=== PATIENT | female | born 1980 | race Two or more races ===

== ENCOUNTER 2022-03-04 19:34 | Emergency (ER) | payer MEDICAID, SELFPAY ==
[2022-03-04 19:57] VITALS: BP 129/83; PULSE 83; RESP 18; TEMP 36.9; O2SAT 98; BMI 28.1
[2022-03-04 20:07] LABS: MANUAL DIFF FLAG NO
[2022-03-04 20:13] LABS: Basophils Absolute Auto 0.1 X10*3/uL (0.0-0.2); Basophils Percent Auto 0.7 % (0-2); Eosinophils Absolute Auto 0.3 X10*3/uL (0.0-0.4); Eosinophils Percent Auto 3.6 % (0-4); Hematocrit 35.9 % (37.0-47.0); Hemoglobin 11.3 g/dl (12.0-16.0); Imm Gran Abs Auto 0.02 X10*3/uL (0.00-0.03); Imm Gran Pct Auto 0.2 % (0.0-0.4); Lymphocytes Absolute Auto 3.5 X10*3/uL (1.2-4.9); Lymphocytes Percent Auto 42.7 % (20-40); Mean Corpuscular HGB Conc 31.5 g/dl (31.0-35.0); Mean Corpuscular Volume 79.4 fL (80.0-98.0); Monocytes Absolute Auto 0.6 X10*3/uL (0.1-1.2); Neutrophils Absolute Auto 3.8 x10*3/uL (2.0-8.3); Neutrophils Percent Auto 45.8 % (45-73); Platelet Count 346 X10*3/uL (160-400); Red Blood Count 4.52 X10*6/uL (4.20-5.50); Red Cell Distribution Width 15.3 % (11.0-16.0); White Blood Count 8.3 X10*3/uL (4.8-10.8)
[2022-03-04 20:23] LABS: Anion Gap 10 (12-20); Blood Urea Nitrogen 16 mg/dL (9-16); Calcium 9.6 mg/dL (8.4-10.2); Carbon Dioxide 27 mmol/L (22-29); Chloride 107 mmol/L (96-108); Creatinine Clr Calc Pharmacy 90.8; Estimated Glomerular Filt Rate > 60; Glucose Random 93 mg/dL (60-115); Potassium 3.9 mmol/L (3.3-5.1); Sodium 140 mmol/L (135-145)
--- NOTE | 2022-03-04 23:00 | ED_ITS ---
HPI - Headache General Chief Complaint: Headache Stated Complaint: high bp Time Seen by Provider: 03/04/22 22:59 Source: patient Mode of arrival: ambulatory Limitations: no limitations History of Present Illness HPI Narrative: Patient with history of headaches for a long time been having headache for last 5 days mostly localized on the right side with sometimes blurred vision photosensitivity and nausea no vomiting no head injury no fever or chills no nasal discharge no relation of headache with posture change no neck pain Related Data Previous Rx's Medication Instructions Recorded mzndblpmny-rxmrvzknftkqv-rlxvbjfo 1 cap PO Q6H PRN #20 cap 03/05/22 50 mg-300 mg-40 mg capsule (Fioricet) ondansetron 4 mg disintegrating 4 mg PO Q6-8H PRN #15 tab 03/05/22 tablet sumatriptan succinate 50 mg tablet 50 mg PO Q2H PRN #10 tab 03/05/22 (Imitrex) Allergies Allergy/AdvReac Type Severity Reaction Status Date / Time No Known Allergies Allergy Verified 03/04/22 19:56 Review of Systems Review of Systems: Yes all other systems are reviewed and are negative [facility] Social History Social History Advance Directives: No Advance Directives Information Provided: Yes Physical Exam Vital Signs: Vital Signs: Last Vital Signs Temp 98.1 F 03/04/22 23:22 Pulse 71 03/04/22 23:22 Resp 16 03/04/22 23:22 BP 139/89 03/04/22 23:22 Pulse Ox 100 03/04/22 23:22 BMI result Body Mass Index 28.1 Appearance: Alert. Oriented X3. No acute distress. Eyes: PERRLA, No Nystagmus fundus benign no papilledema ENT: Pharynx normal. Oral Mucosa moist no temporal artery tenderness Neck: Normal inspection. Neck supple. CVS: Normal heart rate and rhythm. Pulses normal. Respiratory: No respiratory distress. Equal air entry bilateral, no wheezing/rales/rhonchi Abdomen: Soft and nontender. Bowel sounds are present, no mass palpable, Skin: Skin warm and dry. Normal skin color. Normal skin turgor. Extremities: No lower extremity edema. No calf tenderness Neuro: Oriented X 3. No motor deficit. No sensory deficit.No cerebellar signs , cranial nerves II-XII intact MDM - Headache MDM Narrative Medical decision making narrative: Patient clinically with migraine headache responded to Imitrex will discharge patient home on Imitrex and Fioricet Lab Data Attestation: I reviewed the patient's lab results. Result diagrams: 03/04/22 20:03 03/04/22 20:03 Labs: Lab Results 03/04/22 03/04/22 Range/Units 20:03 20:03 WBC 8.3 (4.8-10.8) X10*3/uL RBC 4.52 (4.20-5.50) X10*6/uL Hgb 11.3 L (12.0-16.0) g/dl Hct 35.9 L (37.0-47.0) % MCV 79.4 L (80.0-98.0) fL MCH 25.0 L (27.0-33.0) pg MCHC 31.5 (31.0-35.0) g/dl RDW 15.3 (11.0-16.0) % Plt Count 346 (160-400) X10*3/uL MPV 10.0 (9.4-12.3) fL Immature Gran % (Auto) 0.2 (0.0-0.4) % Neut % (Auto) 45.8 (45-73) % Lymph % (Auto) 42.7 H (20-40) % Sunflower % (Auto) 7.0 (2-11) % Eos % (Auto) 3.6 (0-4) % Baso % (Auto) 0.7 (0-2) % Lymph # (Auto) 3.5 (1.2-4.9) X10*3/uL Sunflower # (Auto) 0.6 (0.1-1.2) X10*3/uL Eos # (Auto) 0.3 (0.0-0.4) X10*3/uL Baso # (Auto) 0.1 (0.0-0.2) X10*3/uL Abs Immat Gran (auto) 0.02 (0.00-0.03) X10*3/uL Absolute Neuts (auto) 3.8 (2.0-8.3) x10*3/uL Absolute Nucleated RBC 0.000 (0.0-0.012) X10*3/uL Nucleated RBC % (auto) 0.0 (0.0-0.2) /100WBC Sodium 140 (135-145) mmol/L Potassium 3.9 (3.3-5.1) mmol/L Chloride 107 (96-108) mmol/L Carbon Dioxide 27 (22-29) mmol/L Anion Gap 10 L (12-20) BUN 16 (9-16) mg/dL Creatinine 0.76 (0.5-1.4) mg/dL Estim Creat Clear Calc 90.8 Estimated GFR > 60 Random Glucose 93 (60-115) mg/dL Calcium 9.6 (8.4-10.2) mg/dL Discharge Plan Discharge Clinical Impression: Migraine Patient Disposition: Home, Self-Care Instructions: Migraine Headache (ED) Additional Instructions: rest at home Imitrex as advised Fioricet 1 tablet every 6 hours as needed Zofran for nausea Follow with PCP Prescriptions: New sumatriptan succinate [Imitrex] 50 mg tablet 50 mg PO Q2H PRN (Reason: migraine headache) Qty: 10 0RF Rx Instructions: do not exceed 2 doses per 24 hrs ondansetron 4 mg tablet,disintegrating 4 mg PO Q6-8H PRN (Reason: nausea and vomiting) Qty: 15 0RF vtsitsfvys-ivbphlzzcdqbd-wwsk [Fioricet] 50-300-40 mg capsule 1 cap PO Q6H PRN (Reason: headache) Qty: 20 0RF Interventions: ED Discharge Assessment Last Done: 03/05/22 00:34 Discharge Date/Time: 03/05/22 00:34
[2022-03-04 23:22] VITALS: BP 139/89; PULSE 71; RESP 16; TEMP 36.7; O2SAT 100
[2022-03-05] MEDS: SUMAtriptan succinate 6 MG/0.5 ML VIAL SUBCUT (00:01)
--- NOTE | 2022-03-05 00:01 | PC.NURSE ---
Assumed care of pt Pt c/o RUSSO x few days with some sensitivity to light Pt taking tylenol and advil with no relief AxO x 4, clear and complete NAD Will continue to monitor
== END 2022-03-05 00:34 | disposition home or self-care (01) ==
PROVIDERS: Emergency Provider Internal Medicine
DX: G43.909 Migraine, unspecified, not intractable, without status migrainosus (principal); H53.8 Other visual disturbances; Z79.899 Other long term (current) drug therapy
CPT/HCPCS: 36415; 80048; 85025; 96372; 99283; 99284; J3030

== ENCOUNTER 2024-02-21 08:25 | Emergency (ER) | payer MEDICAID, SELFPAY ==
--- NOTE | ~2024-02-21 | XR_ITS ---
EXAMINATION: XR CHEST CLINICAL INFORMATION: Chest pain COMPARISON: Chest radiograph from 10/16/2008 TECHNIQUE: Frontal view of the chest was obtained. FINDINGS: No focal consolidation. No pneumothorax. Trachea is midline. Cardiac mediastinal silhouette is not enlarged. No large pleural effusion. Osseous structures are intact. Soft tissues are unremarkable. XR/XR chest 1V IMPRESSION: No acute cardiopulmonary process.
--- NOTE | ~2024-02-21 | CT_ITS ---
EXAMINATION: CTA NECK WITH CONTRAST (STROKE) CTA BRAIN WITH CONTRAST (STROKE) CLINICAL INFORMATION: Suspect acute stroke. Assess for major vessel occlusion. Please call report. COMPARISON: None available. TECHNIQUE: CTA of the head and neck was performed in the axial plane from the mediastinum to the skull vertex using 70 mL Omnipaque 350 intravenous contrast. Additional reformatted multiplanar images including maximum intensity projection MIP images are generated on the CT workstation. This CT examination was performed using dose optimization techniques as appropriate, variously including the following: *Automated exposure control *Adjustment of mA and/or kV according to patient size (this includes techniques or standardized protocols for targeted exams where dose is matched to indication/reason for exam; i.e. extremities or head) *Use of iterative reconstruction technique DLP: 1405 mGy-cm FINDINGS: The degree of stenosis determined by criteria similar to NASCET. BRAIN: See accompanying CT of the brain report. CHEST CTA: The visualized thoracic aortic arch is normal in caliber. There is a three-vessel arch configuration. The brachiocephalic vessels are patent and normal in caliber. There is tortuosity of the proximal left common carotid artery and subclavian artery. There are mroy-ou-qegfrait kinks in the proximal left common carotid artery with associated moderate narrowing of the proximal left common carotid artery. Proximal right common carotid artery is smoothly contoured and normal in caliber. Right subclavian artery is patent and normal in caliber. Distal left subclavian artery is not clearly visualized due to artifacts. NECK CTA: The vertebral arteries are patent with the left being slightly dominant without significant focal stenosis or segmental occlusion. The qfm-sc-dtqylr common carotid arteries are patent and the smoothly contoured. The carotid bifurcations are patent and smoothly contoured. The cervical internal and external carotid arteries are patent, normal caliber and smoothly contoured. BRAIN CTA: The intracranial ICAs are patent and are normal in caliber with smooth contours. The A1 and A2 segments are patent and normal in caliber with normal arborization of the A2 segments. Anterior communicating artery appears normal. The M1 segments, MCA bifurcations and M2 branches are patent and normal in caliber. The intradural vertebral arteries are patent and normal in caliber. The basilar artery is patent and normal in caliber. Superior cerebellar and posterior cerebral arteries are patent and normal in caliber with a origin of the right [employer] and a hypoplastic right P1 segment, normal variant. Left posterior communicating artery also visualized. CT/CT angio head neck stroke IMPRESSION: 1. There are a few kinks in the tortuous proximal left common carotid artery with associated focal short segment moderate narrowing of the proximal left common carotid artery. 2. Otherwise, normal CT angiogram of the neck. 3. Normal CT angiogram of the head. The [facility] staff will call to confirm receipt of this report with acknowledgement of the findings and any recommendations.
--- NOTE | ~2024-02-21 | CT_ITS ---
EXAMINATION: CT HEAD WITHOUT CONTRAST (STROKE PROTOCOL) CLINICAL INFORMATION: Stroke protocol. Speech problems. COMPARISON: None available. TECHNIQUE: Contiguous axial imaging was performed from the skull base to vertex without intravenous administration of contrast. This CT examination was performed using dose optimization techniques as appropriate, variously including the following: *Automated exposure control *Adjustment of mA and/or kV according to patient size (this includes techniques or standardized protocols for targeted exams where dose is matched to indication/reason for exam; i.e. extremities or head) *Use of iterative reconstruction technique DLP: 652 mGy-cm FINDINGS: Brain Volume: Within normal limits within the limitations of qualitative assessment. Structural: No malformations. Brain and Meninges: The brain parenchyma is normal in morphology and attenuation. Javier-white matter interface is preserved. There is no acute territorial infarct, hemorrhage, extra-axial fluid collection, space-occupying process or mass effect. Ventricles and Subarachnoid Spaces: The ventricular system and subarachnoid spaces are within normal range; there is no hydrocephalus. Orbital Structures: Grossly unremarkable within the limitations of the study. Osseous Structures, Sinuses/Mastoids, Extracranial Soft Tissues: Unremarkable CT/CT head for stroke IMPRESSION: No acute intracranial pathology. The [facility] staff will call to confirm receipt of this report with acknowledgement of the findings and any recommendations.
--- NOTE | 2024-02-21 08:32 | ECG_ITS ---
Test Reason : stroke/chest pain Blood Pressure : / mmHG Vent. Rate : 086 BPM Atrial Rate : 086 BPM P-R Int : 140 ms QRS Dur : 076 ms QT Int : 344 ms P-R-T Axes : 044 015 011 degrees QTc Int : 411 ms Normal sinus rhythm Normal ECG When compared with ECG of 16-OCT-2008 13:52, No significant change was found Referred By: Jaspreet Redmond Electronically Signed By:NELDA STREETER
--- NOTE | 2024-02-21 08:39 | ED_ITS ---
HPI - Neuro Symptoms/Deficit General Chief Complaint: Stroke Stated Complaint: STROKE ALERT,RUSSO,CP DOWN LEFT ARM PER EMS Time Seen by Provider: 02/21/24 08:32 Source: patient and EMS Mode of arrival: EMS Limitations: no limitations History of Present Illness HPI Narrative: This is a 45 years old female presented to the emergency department complaining of headache chest pain radiated to the left arm she states that she was having problems speaking. She does have history of migraines she has been seen in this emergency room in the past for migraines. Onset (ago): hour(s) (1) Location: speech History of same: Yes Severity: moderate Exacerbating factors: none Context: gradual onset Associated symptoms: chest pain Related Data Previous Rx's ?Medication ?Instructions ?Recorded atqkooqewd-azahmosghdnka-hemarfnh 1 cap PO Q6H PRN headache #20 caps 03/05/22 50 mg-300 mg-40 mg capsule (Fioricet) ondansetron 4 mg disintegrating 4 mg PO Q6-8H PRN nausea and 03/05/22 tablet vomiting #15 tabs sumatriptan succinate 50 mg tablet 50 mg PO Q2H PRN migraine headache 03/05/22 (Imitrex) #10 tabs Allergies Allergy/AdvReac Type Severity Reaction Status Date / Time No Known Allergies Allergy Verified 02/21/24 09:08 Review of Systems 2 Constitutional: Constitutional: Reports no additional constitutional complaints ENT: Reports system reviewed and no additional complaints, except as documented Cardiovascular: Cardiovascular: Reports no additional cardiovascular complaints [facility] Past Medical History Attestation statement: The following information was validated with the patient. [facility] Narrative: Migraine headache Source: unable to obtain Social History Social History Smoked in Last 30 Days: No Use of substances other than those prescribed or required for medical reasons: No Advance Directives: No Advance Directives Information Provided: No Do you have a plan to hurt others: No Plan Physical Exam 2 Vital Signs: Vital Signs: Last Vital Signs Temp 0 F L 02/21/24 12:49 Pulse 75 02/21/24 12:49 Resp 18 02/21/24 12:49 BP 144/95 H 02/21/24 12:49 Pulse Ox 98 02/21/24 12:49 O2 Del Method Room Air 02/21/24 12:49 BMI result Body Mass Index 28.2 Const: General: cooperative, comfortable and no acute distress Nutritional Appearance: average body habitus Orientation/consciousness: patient oriented x3 Limitations: no limitations HEENT: Head: Yes normal to inspection and Yes No palpable skull fracture present Face and sinus: Yes normal facial exam Mouth: Normal oral and palatal mucosa present Teeth and gingiva: dentition normal Eyes: General: appearance normal, both eyes and all related structures V isual Amin: normal visual amin by confrontation Neck: Neck: Yes normal visual inspection and Yes full ROM Chest: Chest palpation & inspection: normal inspection of the chest Resp: Effort & Inspection: normal respiratory effort and able to speak in complete sentences Auscultation: clear to auscultation bilaterally P ercussion: percussion normal Cardio: Jugular venous distension: no JVD Palpation: normal PMI Rate: r egular rate Rhythm: regular rhythm GI: Inspection: Yes normal to inspection Palpation (GI): Soft to palpation, not firm, nontender and no guarding Auscultation: normal bowel sounds Skin: General skin exam: no rashes or lesions noted, elasticity normal and turgor normal Neuro: General: patient oriented x3 Cranial nerves: Yes CN's II-XII intact bilaterally Cognition (Neuro): normal cognition Motor exam (neuro): 5/5 motor strength present throughout Course Reevaluation(s) Reevaluation #1: completely asymptomatic,most likely complicated migraine Time: 12:32 Medications Administered Discontinued Medications Generic Name Dose Route Start Last Admin Trade Name Freq PRN Reason Stop Dose Admin Acetaminophen/Butalbital/Caffeine 2 tab 02/21/24 09:07 02/21/24 09:20 Butalb/Acetamin/Caff 50/325/40 Tablet PO 02/21/24 09:08 2 tab ONCE ONE Administration Iohexol 100 ml 02/21/24 09:07 02/21/24 09:08 Iohexol 350 Mg/Ml 100 Ml Infus..Btl IV 02/21/24 09:08 70 ml ONCE ONE Administration Medical Decision Making Medical Decision Making [facility] Narrative: Patient presented with stroke-like symptoms, she is neurologically intact at this time I think most likely this is complicated migraine. Will do imaging anyway Differential Diagnosis Differential Diagnoses: The differential diagnosis associated with the presentation includes CVA/TIA/complicated migraine Lab Data [facility] Lab Attestation statement: I reviewed the patient's lab results. 02/21/24 10:03 02/21/24 10:03 Labs: Lab Results 02/21/24 02/21/24 02/21/24 Range/Units 08:36 08:37 10:03 WBC 8.4 (4.8-10.8) X10*3/uL RBC 4.73 (4.20-5.50) X10*6/uL Hgb 11.4 L (12.0-16.0) g/dl Hct 36.3 L (37.0-47.0) % MCV 76.7 L (80.0-98.0) fL MCH 24.1 L (27.0-33.0) pg MCHC 31.4 (31.0-35.0) g/dl RDW 16.4 H (11.0-16.0) % Plt Count 364 (160-400) X10*3/uL MPV 9.4 (9.4-12.3) fL Immature Gran % (Auto) 0.1 (0.0-0.4) % Neut % (Auto) 60.8 (45-73) % Lymph % (Auto) 29.0 (20-40) % Hartley % (Auto) 5.4 (2-11) % Eos % (Auto) 4.1 H (0-4) % Baso % (Auto) 0.6 (0-2) % Lymph # (Auto) 2.4 (1.2-4.9) X10*3/uL Hartley # (Auto) 0.5 (0.1-1.2) X10*3/uL Eos # (Auto) 0.3 (0.0-0.4) X10*3/uL Baso # (Auto) 0.1 (0.0-0.2) X10*3/uL Abs Immat Gran (auto) 0.01 (0.00-0.03) X10*3/uL Absolute Neuts (auto) 5.1 (2.0-8.3) x10*3/uL Absolute Nucleated RBC 0.000 (0.0-0.012) X10*3/uL Nucleated RBC % (auto) 0.0 (0.0-0.2) /100WBC Whole Blood PT 11.9 (11.1-13.5) sec Whole Blood INR 1.0 (0.9-1.1) Sodium 139 (135-145) mmol/L Potassium 3.5 (3.3-5.1) mmol/L Chloride 106 (96-108) mmol/L Carbon Dioxide 26 (22-29) mmol/L Anion Gap 11 L (12-20) BUN 11 (9-16) mg/dL Creatinine 0.64 (0.5-1.4) mg/dL Estim Creat Clear Calc 105.7 Estimated GFR > 60 POC Glucose 95 (60-115) mg/dL Random Glucose 93 (60-115) mg/dL Calcium 9.0 D (8.4-10.2) mg/dL Total Bilirubin 0.2 (0.0-1.0) mg/dL AST 11 (5-31) U/L ALT 12 (0-31) U/L Alkaline Phosphatase 67 (39-117) U/L Troponin I High Sens < 2.7 (<3.5-17.0) ng/L Total Protein 6.7 (6.5-8.0) g/dL Albumin 3.7 (3.5-5.0) g/dL Beta HCG, Quant < 2 mIU/mL Independent Interpretation I performed an independent interpretation of an: CT Scan Interpretation: NO BLEED Radiology Impression Discussion of test interpretation with radiology: I have reviewed the radiologist's reading. Independent Historian Clinical information obtained from an independent historian. History obtained from or confirmed by: EMS EMS Discharge Plan Discharge Clinical Impression: Complicated migraine Patient Disposition: Home, Self-Care Instructions: Migraine Headache (ED) Prescriptions: No Action sumatriptan succinate [Imitrex] 50 mg tablet 50 mg PO Q2H PRN (Reason: migraine headache) Qty: 10 0RF Rx Instructions: do not exceed 2 doses per 24 hrs ondansetron 4 mg tablet,disintegrating 4 mg PO Q6-8H PRN (Reason: nausea and vomiting) Qty: 15 0RF iqdhpmpuhd-zgqlynjpyofwa-dqix [Fioricet] 50-300-40 mg capsule 1 cap PO Q6H PRN (Reason: headache) Qty: 20 0RF Referrals: [facility] [Primary Care Provider] - 2 days Stand Alone Forms: Work/School Release Interventions: ED Discharge Assessment Last Done: 02/21/24 12:49 Discharge Date/Time: 02/21/24 12:50 Print Language: Kinyarwanda
[2024-02-21 08:43] LABS: Prothrombin Time Whole Bld POC 11.9 sec (11.1-13.5)
[2024-02-21 08:44] LABS: Glucose, Whole Blood 95 mg/dL (60-115)
[2024-02-21 09:03] VITALS: BP 131/79; BP 148/90; PULSE 100; PULSE 89; RESP 16; TEMP 36.6; O2SAT 97; O2SAT 99; BMI 28.2
[2024-02-21] MEDS: iohexoL 350 MG/ML 100 ML INFUS..BTL IV (09:08)
[2024-02-21 09:09] VITALS: BP 124/84; PULSE 83; RESP 16; O2SAT 98
--- NOTE | 2024-02-21 09:18 | MHC.STROKE ---
Pt arrived to ED as a stroke alert. Met with patient while she was in CT scan. Pt is awake, alert and oriented x 3. Speech is clear. Pt is tearful. Patient reports that around 0730 this am she had a heated discussion with a family member. After this, patient complained of sudden onset of headache, chest pain, SOB and tingling to her left arm. Pt has history of migraines however reports that her tongue felt heavy at this time as well. Upon arrival to ED, patient evaluated by Dr. Redmond. NIH 0 per MD. Pt was in CT scan when this editorial writer arrived to ED. Face symmetrical, tongue midline. Reports vision slightly blurry. Hand grasp equal. Moving all extremities. Pt was able to move herself off of CT table and onto ED stretcher. No drift noted. No facial palsy noted. Sensation intact in all extremities. Speaking in full clear sentences. Pt reports that she has hypertension but does not take any medications. I just don't have time . Pt also reports hx of old CVA. Stroke Education provided to patient. Pt remains tearful. Swallow eval to be completed by primary RN. Will continue to assist as needed.
[2024-02-21] MEDS: Butalb/Acetamin/Caff 50/325/40 TABLET 2 TAB PO (09:20)
[2024-02-21 09:57] VITALS: BP 116/82; PULSE 82; RESP 16; O2SAT 98
[2024-02-21 10:10] LABS: MANUAL DIFF FLAG NO
[2024-02-21 10:13] LABS: Basophils Absolute Auto 0.1 X10*3/uL (0.0-0.2); Basophils Percent Auto 0.6 % (0-2); Eosinophils Absolute Auto 0.3 X10*3/uL (0.0-0.4); Eosinophils Percent Auto 4.1 % (0-4); Hematocrit 36.3 % (37.0-47.0); Hemoglobin 11.4 g/dl (12.0-16.0); Imm Gran Abs Auto 0.01 X10*3/uL (0.00-0.03); Imm Gran Pct Auto 0.1 % (0.0-0.4); Lymphocytes Absolute Auto 2.4 X10*3/uL (1.2-4.9); Mean Corpuscular HGB Conc 31.4 g/dl (31.0-35.0); Mean Corpuscular Hemoglobin 24.1 pg (27.0-33.0); Mean Corpuscular Volume 76.7 fL (80.0-98.0); Mean Platelet Volume 9.4 fL (9.4-12.3); Monocytes Absolute Auto 0.5 X10*3/uL (0.1-1.2); Monocytes Percent Auto 5.4 % (2-11); Neutrophils Absolute Auto 5.1 x10*3/uL (2.0-8.3); Neutrophils Percent Auto 60.8 % (45-73); Platelet Count 364 X10*3/uL (160-400); Red Blood Count 4.73 X10*6/uL (4.20-5.50); Red Cell Distribution Width 16.4 % (11.0-16.0); White Blood Count 8.4 X10*3/uL (4.8-10.8)
[2024-02-21 10:33] LABS: Alanine Aminotransferase 12 U/L (0-31); Albumin Level 3.7 g/dL (3.5-5.0); Alkaline Phosphatase 67 U/L (39-117); Anion Gap 11 (12-20); Aspartate Amino Transferase 11 U/L (5-31); Bilirubin Total 0.2 mg/dL (0.0-1.0); Blood Urea Nitrogen 11 mg/dL (9-16); Carbon Dioxide 26 mmol/L (22-29); Chloride 106 mmol/L (96-108); Creatinine Clr Calc Pharmacy 105.7; Estimated Glomerular Filt Rate > 60; Glucose Random 93 mg/dL (60-115); Potassium 3.5 mmol/L (3.3-5.1); Sodium 139 mmol/L (135-145); Total Protein 6.7 g/dL (6.5-8.0)
[2024-02-21 10:49] LABS: HCG Quantitative < 2 mIU/mL; Troponin-I High Sensitivity < 2.7 ng/L (<3.5-17.0)
[2024-02-21 12:49] VITALS: BP 144/95; PULSE 75; RESP 18; TEMP -17.7; TEMP 0; O2SAT 98
== END 2024-02-21 12:50 | disposition home or self-care (01) ==
PROVIDERS: Emergency Provider Emergency Medicine
DX: G43.909 Migraine, unspecified, not intractable, without status migrainosus (principal); R07.89 Other chest pain; M54.2 Cervicalgia; Z79.899 Other long term (current) drug therapy
CPT/HCPCS: 36415; 70450; 70496; 70498; 71045; 80053; 82947; 84484; 84702; 85025; 85610; 93005; 99284; 99285; Q9967

== ENCOUNTER → 2024-02-21 08:32 | Outpatient (BNV) | payer MEDICAID, SELFPAY | PROVIDERS: Emergency Provider Emergency Medicine; Visit Provider Internal Medicine | DX: R07.9 Chest pain, unspecified (principal) | CPT/HCPCS: 93010 ==